=== PATIENT | female | born 1990 | race Caucasian/White ===

== ENCOUNTER 2021-02-09 18:50 | Outpatient (REF) | payer BC, SELFPAY ==
--- NOTE | ~2021-02-09 | MR_ITS ---
EXAMINATION: MR BRAIN WITHOUT AND WITH CONTRAST CLINICAL INFORMATION: Right-sided pressure in head with right hearing loss. Symptoms since November 2020. COMPARISON: None TECHNIQUE: Multiplanar, multisequence MRI of the brain was obtained before and after the intravenous administration of 7.5 mL Gadavist. Internal auditory canal protocol images were obtained. FINDINGS: No intracranial hemorrhage, tumors or infarcts are noted. The ventricles and sulci are normal in size and configuration and no focal parenchymal lesions of the brain are noted. Thin section imaging through the internal auditory canals demonstrates normal appearance of the visualized 7th and 8th cranial nerve complexes. No abnormal facial nerve enhancement is visualized. No tumors are noted within the internal auditory canals. The temporal bone labyrinths are normal in contour and signal intensity. Whole brain postcontrast enhanced images demonstrate no abnormal enhancement. Normal flow-related signal intensity is visualized in the major intracranial vessels and dural sinuses. The orbits and globes are partially visualized and demonstrate no abnormalities. No mastoid effusions are noted. No significant mucosal thickening or retained secretions are identified within the paranasal sinuses. MR/MR head/brain wo/w con IMPRESSION: Normal unenhanced and IV contrast enhanced MRI of the brain with thin section imaging through the internal auditory canals. Normal appearance of the visualized 7th-8th cranial nerve complexes. No vestibular schwannomas.
== END 2021-02-09 18:51 | disposition home or self-care (01) ==
LOC: HO.MRI 18:50
PROVIDERS: Absent Provider Internal Medicine; PCP Internal Medicine; Visit Provider Psychiatry & Neurology Neurology
DX: R51.9 Headache, unspecified (principal); H91.91 Unspecified hearing loss, right ear
CPT/HCPCS: 70553; A9585